=== PATIENT | female | born 1990 | race Two or more races ===

== ENCOUNTER 2025-03-16 01:36 | Inpatient (IN) | payer MEDICAID, OTHER ==
[~2025-03-16] VITALS: Ht 165.1 cm; Wt 64.7 kg
--- NOTE | 2025-03-16 02:06 | ED.PDOC ---
History of Present Illness HPI Comments 34-year-old female presents with a chief complaint of chest pain, palpitations, nausea, vomiting, and tremors. Patient states that she is having quite a bit of N/V and is causing her to feel tremulous. Patient is visibly shaking during assessment. Patient mentions that she has a history of Crohns Disease, and is trying to get gallbladder removal surgery. Patient mentions that her channel marketing specialist, Dr. Morrison, has not cleared her for surgery due to her WBC count. Chief Complaint: Chest Pain Time Seen by MD: 01:58 Reviewed Notes: Medications, Allergies Allergies: Coded Allergies: NO KNOWN ALLERGIES (Unverified , 03/16/25) Information Source: Patient Mode of Arrival: Ambulatory Severity: Moderate Timing: Hours Duration: Since onset Prehospital treatment: None Past Medical History PAST MEDICAL HISTORY: Anxiety, Asthma, Gallstones, High Lipids Past Medical History (Other): Crohns Disease Surgical History: Denies all surgeries MANAGER REGIONAL History: Denies all MANAGER REGIONAL Hx Family History Family History: Reviewed,noncontributory to illness Social History Smoker: Non-Smoker Alcohol: Denies ETOH Use Drugs: Denies Drug Use Lives In: Home Constitutional: denies: chills, diaphoresis, fatigue, fever, malaise, sweats, weakness, others EENTM: denies: blurred vision, double vision, ear bleeding, ear discharge, ear drainage, ear pain, ear ringing, eye pain, eye redness, hearing loss, mouth pain, mouth swelling, nasal discharge, nose bleeding, nose congestion, nose pain, photophobia, tearing, throat pain, throat swelling, voice changes, others Respiratory: denies: cough, hemoptysis, orthopnea, SOB at rest, shortness of breath, SOB with excertion, stridor, wheezing, others Cardiovascular: reports: chest pain, palpitations; denies: dizzy spells, diaphoresis, Dyspnea on exertion, edema, irregular heart beat, left arm pain, lightheadedness, PND, syncope, others Gastrointestinal: reports: nausea, vomiting; denies: abdomen distended, abdominal pain, blood streaked bowels, constipated, diarrhea, dysphagia, difficulty swallowing, hematemesis, melena, poor appetite, poor fluid intake, rectal bleeding, rectal pain, others Genitourinary: denies: abnormal vagina bleeding, burning, dyspareunia, dysuria, flank pain, frequency, hematuria, incontinence, pain, , vagina discharge, urgency, others Neurological: reports: tremors; denies: dizziness, fainting, headache, left sided numbness, left sided weakness, numbness, paresthesia, pre-existing deficit, right sided numbness, right sided weakness, seizure, speech problems, tingling, weakness, others Musculoskeletal: denies: back pain, gout, joint pain, joint swelling, muscle pain, muscle stiffness, neck pain, others Integumetry: denies: bruises, change in color, change in hair/nails, dryness, laceration, lesions, lumps, rash, wounds, others Allergic/Immunocompromised: denies: Difficulty Healing, Frequent Infections, Hives, Itching, others Hematologic/Lymphatic: denies: anemia, blood clots, easy bleeding, easy bruising, swollen glands, others Endocrine: denies: excessive hunger, excessive sweating, excessive thirst, excessive urination, flushing, intolerance to cold, intolerance to heat, unexplained weight gain, unexplained weight loss, others Psychiatric: denies: anxiety, bipolar disorder, depression, hopeless, panic disorder, schizophrenia, sleepless, suicidal, others All Other Systems: Reviewed and Negative Physical Exam General Appearance: Mild Distress, Normal, Other (TREMULOUS) HEENT: Normal ENT Inspection, Pharynx Normal, TMs Normal Neck: Full Range of Motion, Non-Tender, Normal, Normal Inspection Respiratory: Chest Non-Tender, Lungs Clear, No Accessory Muscle Use, No Respiratory Distress, Normal Breath Sounds Cardiovascular: No Edema, No JVD, No Murmur, No Gallop, Normal Peripheral Pulses, Regular Rate/Rhythm Breast Exam: Deferred Gastrointestinal: No Organomegaly, Non Tender, No Pulsatile Mass, Normal Bowel Sounds, Soft Genitalia: Deferred Pelvic: Deferred Rectal: Deferred Extremities: No calf tenderness, Normal capillary refill, Normal inspection, Normal range of motion, Non-tender, No pedal edema Musculoskeletal : Apperance: Normal Neurologic: Alert, research assistant professor II-XII nml as Tested, No Motor Deficits, Normal Affect, Normal Mood, No Sensory Deficits Cerebellar Function: Normal Reflexes: Normal Skin: Dry, Normal Color, Warm Lymphatic: No Adenopathy Was a procedure done? Was a procedure done?: No Differential Dx Considerations may include: ACS, viral gastroenteritis, Crohn's flare, hepatitis, dehydration, gallbladder issue, colitis X-Ray, Labs, Meds, VS Vital Signs Date Time Temp Pulse Resp B/P (MAP) Pulse Ox O2 Delivery O2 Flow Rate FiO2 03/16/25 03:16 98.5 97 16 152/102 (119) 98 98.5 03/16/25 03:16 97 16 152/102 03/16/25 03:02 80 03/16/25 02:38 99.7 116 19 122/92 (102) 96 99.7 03/16/25 02:38 116 19 96 Room Air 03/16/25 02:15 105 16 112/89 03/16/25 01:48 97 03/16/25 01:40 99.2 107 18 115/67 (83) 96 99.2 Lab Test 03/16/25 04:07 03/16/25 02:40 03/16/25 02:20 03/16/25 01:49 Range/Units Urine Color Colorless Yellow Urine Clarity Clear Clear Urine pH 7.0 5.0-9.0 Urine Specific [place] 1.037 H 1.001-1.035 Urine Protein Negative Negative Urine Ketones 2+ H Negative Urine Blood Negative Negative /uL Urine Nitrite Negative Negative Urine Bilirubin Negative Negative Urine Urobilinogen Normal Negative mg/dL Urine Leukocyte Esterase Negative Negative /uL Urine RBC <1 0 - 4 /hpf Urine Microscopic WBC < 1 0-5 /HPF Urine Squamous Epithelial Cells Few <5 /hpf Urine Bacteria None seen None Seen /hpf Urine Glucose Normal Normal mg/dL Troponin I High Sensitivity < 3 L < 3 L </=34 ng/L Lactic Acid Level 4.4 *H 0.4-2.0 mmol/L White Blood Count 4.2 L 4.4-10.8 10^3/uL Red Blood Count 3.62 L 4.0-5.20 10^6/uL Hemoglobin 11.6 L 12.2-16.2 g/dL Hematocrit 35.0 L 36.0-46.0 % Mean Corpuscular Volume 96.8 80.0-100.0 fL Mean Corpuscular Hemoglobin 32.1 H 28.0-32.0 pg Mean Corpuscular Hemoglobin Concent 33.2 32.0-36.0 g/dL Red Cell Distribution Width 17.1 H 11.8-14.3 % Platelet Count 67 L 140-450 10^3/uL Mean Platelet Volume 7.5 6.9-10.8 fL Neutrophils (%) (Auto) 63.3 37.0-80.0 % Lymphocytes (%) (Auto) 23.3 10.0-50.0 % Monocytes (%) (Auto) 11.6 0.0-12.0 % Eosinophils (%) (Auto) 0.6 0.0-7.0 % Basophils (%) (Auto) 1.2 0.0-2.0 % Neutrophils # (Auto) 2.7 1.6-8.6 10 ^3/uL Lymphocytes # (Auto) 1.0 0.4-5.4 10 ^3/uL Monocytes # (Auto) 0.5 0-1.3 10 ^3/uL Eosinophils # (Auto) 0 0-0.8 10 ^3/uL Basophils # (Auto) 0.1 0-0.2 10 ^3/uL Nucleated Red Blood Cells 0.1 % Sodium Level 136 136-145 mmol/L Potassium Level 3.5 3.5-5.1 mmol/L Chloride Level 97 L 98-107 mmol/L Carbon Dioxide Level 14 L 20-31 mmol/L Anion Gap 25 H 5-15 Blood Urea Nitrogen 8 L 9-23 mg/dL Creatinine 0.64 0.550-1.02 mg/dL Glomerular Filtration Rate Calc 118 >90 mL/min BUN/Creatinine Ratio 12.5 10.0-20.0 Serum Glucose 128 H 74-106 mg/dL Calcium Level 9.9 8.7-10.4 mg/dL Total Bilirubin 1.7 H 0.2-1.0 mg/dL Aspartate Amino Transferase (AST) 350 H 13-40 U/L Alanine Aminotransferase (ALT) 151 H 7-40 U/L Alkaline Phosphatase 98 46-116 U/L Total Protein 8.1 5.7-8.2 g/dL Albumin 4.5 3.2-4.8 g/dL Lipase 88 H 12-53 U/L Current Medications Medications (Trade) Dose Ordered Sig/Cindy Route Start Time Stop Time Status Last Admin Sodium Chloride 1,000 ml @ 1,000 mls/hr Q1H ONCE IV 03/16/25 02:15 03/16/25 03:14 DC 03/16/25 02:36 Ondansetron HCl (Zofran) 4 mg ONCE ONCE IV 03/16/25 02:15 03/16/25 02:16 DC 03/16/25 02:52 Pantoprazole Sodium (Protonix) 40 mg ONCE ONCE IV 03/16/25 02:15 03/16/25 02:16 DC 03/16/25 02:15 Morphine Sulfate 4 mg ONCE ONCE IV 03/16/25 02:15 03/16/25 02:16 DC 03/16/25 02:15 Sodium Chloride 1,000 ml @ 1,000 mls/hr Q1H ONCE IV 03/16/25 03:15 03/16/25 04:14 DC 03/16/25 03:50 Time of 1ST Reevaluation: 02:28 Reevaluation 1ST: Unchanged Patient Education/Counseling: Diagnosis, Treatment Family Education/Counseling: No Family Present Departure 1 Departure Time of Disposition: 04:23 (Patient presented with abdominal pain that was concerning for possible appendicits, gastritis, cholecystitis, colitis, gastroenteritis, sbo, or orther possible surgical emergency. Data: 1. I ordered and reviewed the result of at least 3 labs including a CBC, BMP, and Urinalysis. 2. I independently interpreted the following tests: CT Abdoment and Pelvis is concerning for enlarged liver .Risk:This patient has a high risk of morbidity due to further diagnostic testing or treatment and may suffer from an acute abdominal process disorder. Workup reveals concern for hepatitis and patient should be admitted for further workup. and possible expert consultation. ) Impression: Primary Impression: Acute chest pain Additional Impressions: Viral syndrome Hepatitis Disposition: ADMITTED INPATIENT Admit to: Med Surg Condition: Serious Critical Care Note Critical Care Time?: No Stability Stability form required: No I personally scribed for KIRSETN KING MD ([email or web address]) on 03/16/25 at 02:06. Electronically submitted by William Lau [email or web address]). KIRSTEN KING MD Mar 16, 2025 02:06
[2025-03-16 02:09] LABS: Basophils # (auto) 0.1 10 ^3/uL (0-0.2); Basophils % (auto) 1.2 % (0.0-2.0); Eosinophils # (auto) 0 10 ^3/uL (0-0.8); Eosinophils % (auto) 0.6 % (0.0-7.0); Hemoglobin 11.6 g/dL (12.2-16.2); Lymphocytes % (auto) 23.3 % (10.0-50.0); Mean Corpuscular Hemoglobin 32.1 pg (28.0-32.0); Mean Corpuscular Hgb Conc. 33.2 g/dL (32.0-36.0); Mean Corpuscular Volume 96.8 fL (80.0-100.0); Monocytes # (auto) 0.5 10 ^3/uL (0-1.3); Monocytes % (auto) 11.6 % (0.0-12.0); Neutrophils # (auto) 2.7 10 ^3/uL (1.6-8.6); Neutrophils % (auto) 63.3 % (37.0-80.0); Nucleated Red Blood Cells % 0.1 %; Platelet Count (auto) 67 10^3/uL (140-450); Red Blood Cells 3.62 10^6/uL (4.0-5.20); Red Cell Distribution Width 17.1 % (11.8-14.3); White Blood Cell 4.2 10^3/uL (4.4-10.8)
[2025-03-16] MEDS: MORPHINE SULFATE 4 MG/ML SYR/VIAL IV ONE (02:15)
[2025-03-16] MEDS: PANTOPRAZOLE 40 MG/10 ML VIAL INJ IV ONE (02:15)
[2025-03-16 02:27] LABS: Alkaline Phosphatase 98 U/L (46-116); Anion Gap 25 (5-15); BUN/Creatinine Ratio 12.5 (10.0-20.0); Calcium 9.9 mg/dL (8.7-10.4); Potassium 3.5 mmol/L (3.5-5.1); Sodium 136 mmol/L (136-145); Total Protein 8.1 g/dL (5.7-8.2)
[2025-03-16 02:28] LABS: Albumin 4.5 g/dL (3.2-4.8)
[2025-03-16 02:34] LABS: Alanine Aminotransferase 151 U/L (7-40); Aspartate Aminotransferase 350 U/L (13-40); Bilirubin, Total 1.7 mg/dL (0.2-1.0); Blood Urea Nitrogen 8 mg/dL (9-23); Carbon Dioxide 14 mmol/L (20-31); Chloride 97 mmol/L (98-107); Glucose 128 mg/dL (74-106); Lipase 88 U/L (12-53)
[2025-03-16] MEDS: SODIUM CHLORIDE 0.9% 1,000 ML IV ONE ×3 (02:36→04:37)
[2025-03-16] MEDS: ONDANSETRON HCL 4 MG/2 ML VIAL IV ONE (02:52)
[2025-03-16 02:57] LABS: Lactic Acid w/Reflex 4.4 mmol/L (0.4-2.0)
[2025-03-16 03:16] VITALS: PULSE 97; RESP 16; O2SAT 96
--- NOTE | 2025-03-16 03:49 | DVH ---
Exam: CT CT AB PEL WITH IV CON ONLY History: abdominal pain COMPARISON: None Technique: Multidetector spiral CT of the abdomen and pelvis was performed from lung bases to pubic s ymphysis. Intravenous contrast was administered during this examination. Portal venous imaging was o btained. Axial, coronal and sagittal multiplanar reformats were performed by the technologist on a [employer] workstation. Radiation Dose : 1. Abdomen/Pelvis: CTDIvol 5.82 mGy, DLP 305.98 mGy*cm. CONTRAST: Type of contrast: Omnipaque 300 Contrast injected: 100 ml Contrast ingested: None Findings: Lung Bases: No acute or significant lung base finding. Normal heart size. No pleural or pericardial effusion. Liver: The liver is enlarged, measuring 20.3 cm in craniocaudal dimension. There is diffuse hepatic s teatosis. No focal lesions. Normal hepatic vascular enhancement. Gallbladder and Biliary Tree: Unremarkable Spleen: Unremarkable Pancreas: The pancreas is normal in appearance without focal lesions or abnormal enhancement. Adrenal Glands: Unremarkable Kidneys: No hydronephrosis. Bladder: Unremarkable Bowel: The stomach is grossly normal in appearance. Small bowel and colon are normal in caliber and d istribution. The appendix is normal. Ascites: Absent Lymphadenopathy: No mesenteric, retroperitoneal or periportal lymphadenopathy. Abdominal Wall and Mesentery: Unremarkable. Vasculature: The visualized abdominal aorta is normal in size and caliber. Abdominal and pelvic vess els demonstrate normal enhancement. Pelvic Organs: Unremarkable Musculoskeletal: No aggressive focal bony lesions, acute fractures or dislocation. IMPRESSION: 1. No acute abdominal or pelvic finding. 2. Hepatomegaly and hepatic steatosis. Radiation optimization: All CT scans at this facility use at least one of these dose optimization teresa hniques: automated exposure control mA and/or kV adjustment per patient size (includes targeted exam s where dose is matched to clinical indication) or iterative reconstruction.
[2025-03-16] MEDS: IOHEXOL 300 MG/ML 100ML BOTTLE IJ ONE (03:54)
--- NOTE | 2025-03-16 03:55 | ECG ---
[facility] Test Date: 2025-03-16 Test Time: 03:02:46 Pat Name: BARTOLOME MURRAY Department: ER Room: 0280T Gender: F Manager Animal: SAMANTHA : 1990 Requested By: KIRSTEN KING Order Number: [id number] Reading MD: Alexander Gallagher Measurements Intervals [place] Rate: 80 P: 82 SD: 145 QRS: 73 QRSD: 100 T: 56 QT: 413 QTc: 477 Interpretive Statements Sinus rhythm Borderline prolonged QT interval Electronically Signed On 03-18-2025 13:01:02 PDT by Alexander Gallagher Please click the below link to view image of tracing.
[2025-03-16 04:14] LABS: Urine Bacteria None Seen /hpf (None Seen)
[2025-03-16 04:19] LABS: Urine Blood Negative /uL (Negative); Urine Clarity Clear (Clear); Urine Color Colorless (Yellow); Urine Protein, UAD Negative (Negative); Urine Specific Gravity 1.037 (1.001-1.035); Urine Squamous Epithelial Cell FEW /hpf (<5); Urine Urobilinogen Normal (Negative); Urine WBC < 1 /HPF (0-5)
[2025-03-16] MEDS: ceFAZolin 2 GM/D5W50ml 50 ML IV ONE (04:36)
[2025-03-16] MEDS: metroNIDAZOLE 500MG/100ML 100 ML IV ONE (05:33)
[2025-03-16 05:56] LABS: Base Excess -3.7 mmol/L (-2.0-3.0)
--- NOTE | 2025-03-16 06:29 | DVH ---
EXAM: XR Chest, 1 View CLINICAL INDICATION: cp TECHNIQUE: Frontal view of the chest. COMPARISON: None FINDINGS: LUNGS AND PLEURAL SPACES: Unremarkable. No consolidation. No pneumothorax. HEART: Unremarkable. No cardiomegaly. MEDIASTINUM: Unremarkable. Normal mediastinal contour. BONES/JOINTS: Unremarkable. No acute fracture. OTHER FINDINGS: . None. IMPRESSION: No acute cardiopulmonary process.
[2025-03-16] MEDS ORDERED: ONDANSETRON HCL 4 MG/2 ML VIAL IV PRN (06:45)
[2025-03-16] MEDS ORDERED: NITROGLYCERIN 0.4 MG SL TAB SL PRN (06:45)
[2025-03-16] MEDS ORDERED: MORPHINE SULFATE INJ 2 MG/ml SYRG IV PRN ×2 (06:45→07:00)
--- NOTE | 2025-03-16 06:48 | ECG ---
[facility] Test Date: 2025-03-16 Test Time: 04:50:14 Pat Name: BARTOLOME MURRAY Department: ED Room: 0280T Gender: F Security Sme: SAMANTHA : 1990 Requested By: KIRSTEN KING Order Number: [id number] Reading MD: Alexander Gallagher Measurements Intervals [place] Rate: 86 P: 52 ND: 159 QRS: 25 QRSD: 89 T: 12 QT: 381 QTc: 456 Interpretive Statements Sinus rhythm Low voltage, precordial leads Borderline T abnormalities, anterior leads Electronically Signed On 03-18-2025 13:05:27 PDT by Alexander Gallagher Please click the below link to view image of tracing.
--- NOTE | 2025-03-16 06:51 | ECG ---
[facility] Test Date: 2025-03-16 Test Time: 01:48:18 Pat Name: BARTOLOME MURRAY Department: ED Room: 0280T Gender: F Slasher Operator: VIRGILIO : 1990 Requested By: KIRSTEN KING Order Number: [id number] Reading MD: Alexander Gallagher Measurements Intervals [place] Rate: 97 P: 66 RI: 136 QRS: 58 QRSD: 100 T: 15 QT: 367 QTc: 466 Interpretive Statements Sinus rhythm Low voltage, precordial leads Electronically Signed On 03-18-2025 13:00:43 PDT by Alexander Gallagher Please click the below link to view image of tracing.
[2025-03-16 07:08] LABS: Triglycerides 121 mg/dL (< 150)
[2025-03-16 07:11] LABS: Blood Alcohol < 3.0 mg/dL (<10); Cholesterol 278 mg/dL (< 200); HDL Cholesterol 93 mg/dL (40-59); LDL Cholesterol 162 mg/dL (< 100)
[2025-03-16 07:14] LABS: Opiate Scree,Urine Neg (NEGATIVE)
[2025-03-16 07:19] LABS: Amphetamine Screen, Urine Neg (NEGATIVE); Barbiturate Scree,Urine Neg (NEGATIVE); Benzodiazephine Screen, Urine Neg (NEGATIVE); Cannabinoid Screen, Urine Neg (NEGATIVE); Cocaine Screen, Urine Neg (NEGATIVE); Phencyclidine Screen, Urine Neg (NEGATIVE)
--- NOTE | 2025-03-16 07:19 | DVHHP2 ---
Admitting Diagnosis: Chest pain rule out ACS, Transaminitis, Thrombocytopenia History of Present Illness History Source: Patient Exam Limitations: No limitations HPI Mrs. Jade Sosa is a 34-year-old female with a history of Crohn's disease, anxiety disorder, asthma, hyperlipidemia, gallstones who presents with a chief complaint of chest pain, palpitations, nausea, vomiting, and tremors. Patient states that she is having quite a bit of N/V with blood in her sputum once on Sunday, denies any further blood in her sputum, reports it is causing her to feel tremulous. Patient is visibly shaking during assessment. Patient mentions she is trying to get gallbladder removal surgery, is seen by general surgeon Dr. Fuentes Perez. Patient mentions that her breakfast and room attendant, Dr. Brigitte Morrison, has not cleared her for surgery due to her WBC count. Patient reports midsternal chest pressure non radiating. Patient denies dyspnea, headaches, dizziness, melena, hematochezia, diarrhea, constipation, hematemesis, fevers. Patient admitted for further evaluation. Past Medical History Cardiac: Hyperlipidemia Pulmonary: Asthma Psychiatric: Anxiety Others gallstones Smoker: Quit (2018) Alocohol: Occassional Drugs: None Lives with: With family Domestic Violence: Neg Review of Systems Constitutional: No symptom reported Ears, Nose, & Throat: No symptom reported Eyes: No symptom reported Pulmonary/Respiratory: Other (hemoptysis x1 ) Cardiovascular: Chest Pain, Palpitations Gastrointestinal: No symptom reported Genitourinary: No symptom reported Musculoskeletal: No symptom reported Skin: No symptom reported Psychiatric: Tremors, Anxiety Endocrine: No symptom reported Hemotologic/Lymphatic: Other (nose bleeds) H&P Exam Vital Signs Vital Signs Date Time Temp Pulse Resp B/P (MAP) Pulse Ox O2 Delivery O2 Flow Rate FiO2 03/16/25 06:00 100 19 133/89 (104) 97 03/16/25 03:16 98.5 98.5 03/16/25 03:16 Room Air* 0 21 General Appeara: Well developed, Well nourished, Normal Appearance Head Exam: Normal inspection Neck Exam: Normal inspection, Non-tender, Normal alignment Eye Exam: bilateral eye Normal inspection, bilateral eye PERRL, bilateral eye EOMI Ear Exam: bilateral ear Auricle normal Nasal Exam: Normal inspection Mouth: Normal Inspection Pulmonary/Respiratory: Normal inspection, Normal breath sounds, Chest non- tender, Lungs clear Cardiovascular/Chest: Normal inspection, Normal Rhythm, Tachycardia Peripheral Pulses: 2+ dorsalis pedis (R), 2+ dorsalis pedis (L), 2+ Radial (R), 2+ Radial (L) Abdominal Exam: Normal bowel sounds, Soft, No tenderness Rectal Exam: Deferred Pelvic Exam: Not done IMMIGRATION INSPECTOR Exam: Normal hearing, Normal speech, PERRL Motor/Sensory: Normal sensory function, Normal motor function Neuro/Mental St: Alert, Oriented Appearance: Appropriate appearance, Appropriate insight Eye contact/ Speech: Cooperative, Good eye contact, Increased rate of speech Thoughts/Psych: Normal thought pattern Skin Exam: Normal inspection, Warm/dry, Pallor Labs/Xrays Labs Test 03/16/25 06:41 03/16/25 05:52 03/16/25 04:07 03/16/25 01:49 Range/Units POC Glucose 110 H 70-106 mg/dl Blood Gas Specimen Type Arterial Blood Gas Sample Site Right radial Blood Gas Patient Temperature 37.0 Arterial Blood Date Drawn [id number] Arterial Blood pH 7.499 H 7.350-7.450 Arterial Blood Partial Pressure CO2 23.9 L 32.0-45.0 mmHg Arterial Blood Partial Pressure O2 62.0 L 83.0-108.0 mmHg Arterial Blood HCO3 18.2 L 21.0-28.0 mmol/L Arterial Blood Oxygen Saturation 89.6 L 94.0-98.0 % Arterial Blood Base Excess -3.7 L -2.0-3.0 mmol/L Arterial Blood Oxyhemoglobin 88.7 L 94.0-98.0 % Arterial Blood Carboxyhemoglobin 0.3 L 0.5-1.5 % Arterial Blood Methemoglobin 0.7 0.0-1.5 % Luke Test Yes Blood Gas Total Hemoglobin 10.70 L 12.0-16.0 g/dL Blood Gas Liter Flow 0.00 Blood Gas Modality Room air FiO2 % 21.0 Lactic Acid Level 1.5 0.4-2.0 mmol/L Troponin I High Sensitivity < 3 L </=34 ng/L Urine Color Colorless Yellow Urine Clarity Clear Clear Urine pH 7.0 5.0-9.0 Urine Specific [place] 1.037 H 1.001-1.035 Urine Protein Negative Negative Urine Ketones 2+ H Negative Urine Blood Negative Negative /uL Urine Nitrite Negative Negative Urine Bilirubin Negative Negative Urine Urobilinogen Normal Negative mg/dL Urine Leukocyte Esterase Negative Negative /uL Urine RBC <1 0 - 4 /hpf Urine Microscopic WBC < 1 0-5 /HPF Urine Squamous Epithelial Cells Few <5 /hpf Urine Bacteria None seen None Seen /hpf Urine Glucose Normal Normal mg/dL White Blood Count 4.2 L 4.4-10.8 10^3/uL Red Blood Count 3.62 L 4.0-5.20 10^6/uL Hemoglobin 11.6 L 12.2-16.2 g/dL Hematocrit 35.0 L 36.0-46.0 % Mean Corpuscular Volume 96.8 80.0-100.0 fL Mean Corpuscular Hemoglobin 32.1 H 28.0-32.0 pg Mean Corpuscular Hemoglobin Concent 33.2 32.0-36.0 g/dL Red Cell Distribution Width 17.1 H 11.8-14.3 % Platelet Count 67 L 140-450 10^3/uL Mean Platelet Volume 7.5 6.9-10.8 fL Neutrophils (%) (Auto) 63.3 37.0-80.0 % Lymphocytes (%) (Auto) 23.3 10.0-50.0 % Monocytes (%) (Auto) 11.6 0.0-12.0 % Eosinophils (%) (Auto) 0.6 0.0-7.0 % Basophils (%) (Auto) 1.2 0.0-2.0 % Neutrophils # (Auto) 2.7 1.6-8.6 10 ^3/uL Lymphocytes # (Auto) 1.0 0.4-5.4 10 ^3/uL Monocytes # (Auto) 0.5 0-1.3 10 ^3/uL Eosinophils # (Auto) 0 0-0.8 10 ^3/uL Basophils # (Auto) 0.1 0-0.2 10 ^3/uL Nucleated Red Blood Cells 0.1 % Sodium Level 136 136-145 mmol/L Potassium Level 3.5 3.5-5.1 mmol/L Chloride Level 97 L 98-107 mmol/L Carbon Dioxide Level 14 L 20-31 mmol/L Anion Gap 25 H 5-15 Blood Urea Nitrogen 8 L 9-23 mg/dL Creatinine 0.64 0.550-1.02 mg/dL Glomerular Filtration Rate Calc 118 >90 mL/min BUN/Creatinine Ratio 12.5 10.0-20.0 Serum Glucose 128 H 74-106 mg/dL Hemoglobin A1c 5.0 <5.7 % A1C Calcium Level 9.9 8.7-10.4 mg/dL Total Bilirubin 1.7 H 0.2-1.0 mg/dL Aspartate Amino Transferase (AST) 350 H 13-40 U/L Alanine Aminotransferase (ALT) 151 H 7-40 U/L Alkaline Phosphatase 98 46-116 U/L Total Protein 8.1 5.7-8.2 g/dL Albumin 4.5 3.2-4.8 g/dL Lipase 88 H 12-53 U/L Beta HCG, Quantitative 0.9 L 1.5-4.2 mIU/mL Test 03/16/25 01:46 Range/Units Beta-Hydroxybutyric Acid > 4.500 H < 0.4 mmol/L Assessment/Plan Problem List: (1) Acute chest pain (2) Palpitations (3) Transaminitis (4) Thrombocytopenia (5) Anxiety Plan This is a 34 yo female with known history of Crohn's disease, hyperlipidemia, asthma, gallstones, anxiety who presents to the hospital with chest pain, palpitations, tremors. CT abdomen and pelvis resulted 1. No acute abdominal or pelvic finding. 2. Hepatomegaly and hepatic steatosis. Patient was found to have 1. CP r/o ACS 2. Transaminitis 3. Thrombocytopenia 4. Elevated lipase 5. Anxiety 6. hx of Asthma 7. hx of Crohn's disease Plan Admit Telemetry unit Cardiology consultation, 2D echocardiogram, Statin, hold ASA d/t thrombocytopenia, serial troponin levels, Lipid panel, TSH level, CXR is pending Hematology consultation, Monitor CMP, CBC Gastroenterology consultation, Hepatitis panel, stool OB. IV fluids NS GI ppx Protonix Continue Lexapro home medication for anxiety Antiemetics as needed BC x2 pending Discussed all above with patient and patient mother at bedside in ED bed 11. Both patient and mother verbalized understanding of care plan. All questions were answered. Discussed assessment and care plan with supervising MD. Patient's chart is reviewed and discussed with the nurse practitioner. Patient is seen and evaluated by me this afternoon. I agree with the nurse practitioner's evaluation, documentation, assessment and care plan as outlined. Plan discussed with: Patient, Other (mother ) Code Visit Code Visit Total Time (mins): 45 SRIDEVI GONSALES Mar 16, 2025 07:19 JAGUAR JENKINS MD Mar 16, 2025 17:37
[2025-03-16] MEDS: SODIUM CHLORIDE 0.9% 1,000 ML IV SCH ×2 (07:44→13:18)
[2025-03-16 08:16] VITALS: PULSE 97; RESP 18; O2SAT 96
[2025-03-16] MEDS: PANTOPRAZOLE 40 MG/10 ML VIAL INJ IV SCH (10:18)
[2025-03-16] MEDS: CITALOPRAM HYDROBR 20 MG TAB PO SCH (10:20)
[2025-03-16 10:41] LABS: Hepatitis A Ab IgM Negative; Hepatitis B Core IgM Negative (Negative); Hepatitis B Surface Antigen Negative (Negative); Hepatitis C Antibody Negative (Negative)
--- NOTE | 2025-03-16 10:41 | DVHINCON2 ---
ALESIA LEAL [facility] 03/16/25 1041: Date Seen: Mar 16, 2025 Referring Physician DALE Braxton Reason for Consultation Chest pain History of Present Illness This is a 34-year-old female who presented to the emergency room with a chief complaint of chest pain. The patient presents with multiple complaints including substernal chest tightness, decreased appetite for two days, nausea, vomiting, hemoptysis, and tremors. She underwent multiple 12 lead electrocardiograms x2 revealing a normal sinus rhythm. Serial troponin levels are negative. Significant medical history includes Crohn's disease, dyslipidemia, asthma, anxiety, and cholelithiasis. Past Medical History Past medical history reviewed. No other significant than mentioned above. Past Surgical History Left oophorectomy Family History Family history reviewed. Significant for father with CAD including a quadruple vessel CABG. Social History Denies the use of illicit drugs or tobacco use. Admits to occasional alcohol use. Allergies: Coded Allergies: NO KNOWN ALLERGIES (Unverified , 03/16/25) Home Meds Home medications reviewed. Current Medications Current Medications Medications (Trade) Dose Ordered Sig/Cindy Route PRN Reason Start Time Stop Time Status Last Admin Nitroglycerin (Ntrostat Sublingual) 0.4 mg Q5MINP PRN SL FOR CHEST PAIN 03/16/25 06:45 Morphine Sulfate 2 mg Q30M PRN IV FOR CHEST PAIN 03/16/25 06:45 Citalopram Hydrobromide (CeleXA TABLET) 20 mg DAILY PO 03/16/25 10:00 03/16/25 10:20 Atorvastatin Calcium (Lipitor) 20 mg HS PO 03/16/25 22:00 Sodium Chloride 1,000 ml @ 100 mls/hr Q10H IV 03/16/25 06:45 03/16/25 07:44 Ondansetron HCl (Zofran) 4 mg Q6HPRN PRN IV NAUSEA / VOMITING 03/16/25 06:45 Pantoprazole Sodium (Protonix) 40 mg BID IV 03/16/25 10:00 03/16/25 10:18 Morphine Sulfate 2 mg Q6HPRN PRN IV PAIN SCALE 7 THRU 10 03/16/25 07:00 Review of Systems Constitutional: Tremors Ears, Nose, & Throat: No symptom reported Eyes: No symptom reported Neurological: No symptoms reported Pulmonary/Respiratory: Hemoptysis Cardiovascular: Chest pain Gastrointestinal: Nausea and vomiting, decreased appetite Genitourinary: No symptom reported Musculoskeletal: No symptom reported Skin: No symptom reported Psychiatric: No symptom reported Endocrine: No symptom reported Hemotologic/Lymphatic: No symptom reported Vital Signs Vital Signs Date Time Temp Pulse Resp B/P (MAP) Pulse Ox O2 Delivery O2 Flow Rate FiO2 03/16/25 08:16 97 18 96 Room Air* 0 21 03/16/25 08:00 98.8 121/81 (94) 98.8 Physical Exam General Appearance: Cooperative. Well developed. Well nourished. Appears very anxious. Tremors present Head Exam: Normal inspection Neck Exam: Normal inspection. Non-tender. Normal alignment Pulmonary/Respiratory: Chest non-tender. Clear bilateral breath sounds Cardiovascular/Chest: Regular rate and rhythm. S1, S2. NSR. No murmurs. No JVD. Peripheral Pulses: 2+ Radial (R). 2+ Radial (L). 2+ Pedal (R). 2+ Pedal (L) Abdominal Exam: Normal bowel sounds. Soft. Ankle Exam: Negative ankle edema Lower extremities: Negative lower extremity edema Neuro/Mental Status: A&O x4. Coherent Thoughts/Psych: Normal thought pattern. Very anxious Appearance: In no acute distress Skin Exam: Normal inspection. Normal color. Warm. Dry Labs/Diagnostic Data Labs Test 03/16/25 06:41 03/16/25 05:52 03/16/25 04:07 03/16/25 01:49 Range/Units POC Glucose 110 H 70-106 mg/dl Blood Gas Specimen Type Arterial Blood Gas Sample Site Right radial Blood Gas Patient Temperature 37.0 Arterial Blood Date Drawn [id number] Arterial Blood pH 7.499 H 7.350-7.450 Arterial Blood Partial Pressure CO2 23.9 L 32.0-45.0 mmHg Arterial Blood Partial Pressure O2 62.0 L 83.0-108.0 mmHg Arterial Blood HCO3 18.2 L 21.0-28.0 mmol/L Arterial Blood Oxygen Saturation 89.6 L 94.0-98.0 % Arterial Blood Base Excess -3.7 L -2.0-3.0 mmol/L Arterial Blood Oxyhemoglobin 88.7 L 94.0-98.0 % Arterial Blood Carboxyhemoglobin 0.3 L 0.5-1.5 % Arterial Blood Methemoglobin 0.7 0.0-1.5 % Luke Test Yes Blood Gas Total Hemoglobin 10.70 L 12.0-16.0 g/dL Blood Gas Liter Flow 0.00 Blood Gas Modality Room air FiO2 % 21.0 Lactic Acid Level 1.5 0.4-2.0 mmol/L Troponin I High Sensitivity < 3 L </=34 ng/L Triglycerides Level 121 < 150 mg/dL Cholesterol Level 278 H < 200 mg/dL LDL Cholesterol 162 H < 100 mg/dL HDL Cholesterol 93 H 40-59 mg/dL Thyroid Stimulating Hormone (TSH) 5.31 H 0.55-4.78 uIU/mL Plasma/Serum Blood Alcohol < 3.0 <10 mg/dL Urine Color Colorless Yellow Urine Clarity Clear Clear Urine pH 7.0 5.0-9.0 Urine Specific [place] 1.037 H 1.001-1.035 Urine Protein Negative Negative Urine Ketones 2+ H Negative Urine Blood Negative Negative /uL Urine Nitrite Negative Negative Urine Bilirubin Negative Negative Urine Urobilinogen Normal Negative mg/dL Urine Leukocyte Esterase Negative Negative /uL Urine RBC <1 0 - 4 /hpf Urine Microscopic WBC < 1 0-5 /HPF Urine Squamous Epithelial Cells Few <5 /hpf Urine Bacteria None seen None Seen /hpf Urine Glucose Normal Normal mg/dL Urine Opiates Screen Neg NEGATIVE Urine Fentanyl Screen Neg NEGATIVE Urine Barbiturates Screen Neg NEGATIVE Urine Phencyclidine Screen Neg NEGATIVE Urine Amphetamines Screen Neg NEGATIVE Urine Benzodiazepines Screen Neg NEGATIVE Urine Cocaine Screen Neg NEGATIVE Urine Cannabinoids Screen Neg NEGATIVE White Blood Count 4.2 L 4.4-10.8 10^3/uL Red Blood Count 3.62 L 4.0-5.20 10^6/uL Hemoglobin 11.6 L 12.2-16.2 g/dL Hematocrit 35.0 L 36.0-46.0 % Mean Corpuscular Volume 96.8 80.0-100.0 fL Mean Corpuscular Hemoglobin 32.1 H 28.0-32.0 pg Mean Corpuscular Hemoglobin Concent 33.2 32.0-36.0 g/dL Red Cell Distribution Width 17.1 H 11.8-14.3 % Platelet Count 67 L 140-450 10^3/uL Mean Platelet Volume 7.5 6.9-10.8 fL Neutrophils (%) (Auto) 63.3 37.0-80.0 % Lymphocytes (%) (Auto) 23.3 10.0-50.0 % Monocytes (%) (Auto) 11.6 0.0-12.0 % Eosinophils (%) (Auto) 0.6 0.0-7.0 % Basophils (%) (Auto) 1.2 0.0-2.0 % Neutrophils # (Auto) 2.7 1.6-8.6 10 ^3/uL Lymphocytes # (Auto) 1.0 0.4-5.4 10 ^3/uL Monocytes # (Auto) 0.5 0-1.3 10 ^3/uL Eosinophils # (Auto) 0 0-0.8 10 ^3/uL Basophils # (Auto) 0.1 0-0.2 10 ^3/uL Nucleated Red Blood Cells 0.1 % Sodium Level 136 136-145 mmol/L Potassium Level 3.5 3.5-5.1 mmol/L Chloride Level 97 L 98-107 mmol/L Carbon Dioxide Level 14 L 20-31 mmol/L Anion Gap 25 H 5-15 Blood Urea Nitrogen 8 L 9-23 mg/dL Creatinine 0.64 0.550-1.02 mg/dL Glomerular Filtration Rate Calc 118 >90 mL/min BUN/Creatinine Ratio 12.5 10.0-20.0 Serum Glucose 128 H 74-106 mg/dL Hemoglobin A1c 5.0 <5.7 % A1C Calcium Level 9.9 8.7-10.4 mg/dL Total Bilirubin 1.7 H 0.2-1.0 mg/dL Aspartate Amino Transferase (AST) 350 H 13-40 U/L Alanine Aminotransferase (ALT) 151 H 7-40 U/L Alkaline Phosphatase 98 46-116 U/L Total Protein 8.1 5.7-8.2 g/dL Albumin 4.5 3.2-4.8 g/dL Lipase 88 H 12-53 U/L Beta HCG, Quantitative 0.9 L 1.5-4.2 mIU/mL Test 03/16/25 01:46 Range/Units Beta-Hydroxybutyric Acid > 4.500 H < 0.4 mmol/L Assessment Chest pain with associated acute hypoxic respiratory failure Rule out structural heart disease Rule out pulmonary emboli Anemia/thrombocytopenia Elevated LFTs Dyslipidemia ?Thyroid disease Plan/Recommendation (Dr. Castaneda) We will continue further cardiac evaluation with a transthoracic echocardiogram to rule out structural heart disease and a CT angio with contrast to rule out PE. Aware of contrast administered with previous imaging study. The patient presents with a Heart Score of 1 placing her at a low risk for major coronary cardiac events. In the meantime, continue lipid-lowering agent. Anticoagulation therapy held given thrombocytopenia. Further orders per clinical course. Thank you for allowing us to participate in this patient's care. Please call if you have any questions or concerns. This medical document was created using an electronic medical record system with voice recognition software and computerized dictation system. Although this document has been carefully reviewed, there might still be some phonetic and typographical errors. Occasional wrong-word or ``sound-alike substitutions may have occurred due to the inherent limitations of voice recognition software. These areas are purely typographical due to imperfections of the software programs and do not reflect any compromise in the patient's medical care. Please read the chart carefully and recognize, using context, where these substitutions have occurred. Plan discussed with: Patient, Other NYHA Physical activity limitations: NA Date of Service: Mar 16, 2025 Billing Provider: ALESIA LEAL Cardiology Common Codes: [id number] INP/OBS CARE (High) GRACIELA CASTANEDA MD 03/17/25 1211: Allergies: Coded Allergies: NO KNOWN ALLERGIES (Unverified , 03/16/25) Plan/Recommendation pt needs GI workup for LFTs and very low bicarb levels, cardiac issues are not significant at this time and echo is WNL, please consult specialist regarding her more urgent matters ALESIA LEAL Mar 16, 2025 10:41 GRACIELA CASTANEDA MD Mar 17, 2025 12:11
[2025-03-16] MEDS: LORazepam 2MG/ML-1ML VIAL IV ONE (11:33)
--- NOTE | 2025-03-16 11:36 | DVHSR ---
APPROVED REPORT EXAM: Two-dimensional and M-mode echocardiogram with Doppler and color Doppler. Blood Pressure: 133/89 mmHg INDICATION Chest Pain Tachycardia RISK FACTORS Height: 65, Weight: 143 DIMENSIONS LVDd4.2 (3.8-5.7cm)LA (2D)3.5 (1.9-4.0cm)Aortic Root3.0 (2.0-3.7cm) LVDs2.7 (2.5-4.0cm)LA (MM) (1.9-4.0cm)Aortic Cusp Exc1.8 (1.5-2.0cm) EF (%) 65.0 (55-70%)Rt. Atrium3.2 (1.9-4.0cm)Asc. Aorta cm IVSd0.7 (0.7-1.1cm)RV (D) (1.8-2.4cm) PWd0.8 (0.7-1.1cm) Mitral Valve MitralMitral Stenosis E wave0.78m/sMV Mean GR.mmHg A wave0.95m/sMV Peak GR.mmHg E/A ratio0.82D MVAcm2 DECEL [id number] 1/2 [id number] IVRTmsDop MVA3.78cm2 Aortic Valve Aortic ValveAortic Stenosis V11.26m/Sheela Mean GR.3mmHg V21.21m/Sheela Peak GR.6mmHg LVOT Diameter1.9 (1.8-2.4cm)Doppler AVA2.95cm2 Pulmonic Valve V21.00m/s Conclusion lvef 70% by visual estimate normal rv function normal atria no severe valve abnormalities noted
[2025-03-16] MEDS: LORazepam 2MG/ML-1ML VIAL ONE (11:59)
[2025-03-16 12:54] LABS: Lactic Acid w/Reflex 10.6 mmol/L (0.4-2.0)
[2025-03-16] MEDS ORDERED: LORazepam 2MG/ML-1ML VIAL IV PRN (13:15)
--- NOTE | 2025-03-16 13:17 | DVHCONRES ---
Date Seen: Mar 16, 2025 Resident Creating Document: MANDYGEMA SANCHEZ RESIDENT Reason for Consultation Transaminitis History of Present Illness BARTOLOME MURRAY is a 34-year-old female with a history of Crohn's disease, anxiety disorder, asthma, hyperlipidemia, gallstones who presents with a chief complaint of vomiting. Patient reported she has been having vomiting for last 2 months which is occasionally but recently it has been more consistent and associated with a blade for 1 week associated with mild chest discomfort nausea and tremors which prompted her to visit ED. Patient states that she is having quite a bit of N/V with blood in her sputum once on Sunday, denies any further blood in her sputum, reports it is causing her to feel tremulous. Patient is visibly shaking during assessment. Patient mentions she is trying to get gallbladder removal surgery, is seen by general surgeon Dr. Fuentes Perez. Patient denies dyspnea, headaches, dizziness, melena, hematochezia, diarrhea, constipation, hematemesis, fevers. GI was consulted for elevated liver enzymes. Patient denies history of liver disease. Patient reports occasional alcohol abuse. PMH: Crohn's disease since 2018 and on medications, anxiety disorder, asthma, hyperlipidemia, gallstones PSH: Denies Family history: History of unknown cancer in mom's cousin Social history: Lives with the family. Ex-smoker, occasional alcohol abuse, but no other drug abuse Allergies: No known allergies Allergies: Coded Allergies: NO KNOWN ALLERGIES (Unverified , 03/16/25) Current Medications Current Medications Medications (Trade) Dose Ordered Sig/Cindy Route PRN Reason Start Time Stop Time Status Last Admin Nitroglycerin (Ntrostat Sublingual) 0.4 mg Q5MINP PRN SL FOR CHEST PAIN 03/16/25 06:45 Morphine Sulfate 2 mg Q30M PRN IV FOR CHEST PAIN 03/16/25 06:45 Citalopram Hydrobromide (CeleXA TABLET) 20 mg DAILY PO 03/16/25 10:00 03/16/25 10:20 Atorvastatin Calcium (Lipitor) 20 mg HS PO 03/16/25 22:00 Sodium Chloride 1,000 ml @ 100 mls/hr Q10H IV 03/16/25 06:45 03/16/25 13:02 DC 03/16/25 07:44 Ondansetron HCl (Zofran) 4 mg Q6HPRN PRN IV NAUSEA / VOMITING 03/16/25 06:45 Pantoprazole Sodium (Protonix) 40 mg BID IV 03/16/25 10:00 03/16/25 10:18 Morphine Sulfate 2 mg Q6HPRN PRN IV PAIN SCALE 7 THRU 10 03/16/25 07:00 Sodium Chloride 1,000 ml @ 125 mls/hr Q8H IV 03/16/25 13:00 Lorazepam (Ativan Inj) 1 mg Q5MINP PRN IV SEIZURES 03/16/25 13:15 Review of Systems Patient seen and examined at the bedside. Patient currently reported tremors, nausea, anxiety, palpitations, blood in vomiting Vital Signs Vital Signs Date Time Temp Pulse Resp B/P (MAP) Pulse Ox O2 Delivery O2 Flow Rate FiO2 03/16/25 12:00 125 20 147/103 (118) 96 03/16/25 08:16 Room Air* 0 21 03/16/25 08:00 98.8 98.8 Physical Exam Pt is lying on bed General Appearance: Alert, Oriented X3, Cooperative, Not in acute distress HEENT: Atraumatic, Mucous membranes moist/pink Respiratory: Clear to auscultation, Normal air movement, No added sounds Cardiovascular: Regular rate, Normal S1, Normal S2, No murmurs, sternal tenderness Abdominal: Active bowel sounds, Soft, no distention, epigastrium, RUQ abdominal tenderness Extremities: No edema, Normal pulses, No tenderness/swelling Skin: No Significant rash, except past surgical scars Neuro: Normal speech, sensorimotor deficits none Psych/Mental Status: anxious Nurse was there as sharperone during examination Labs/Diagnostic Data Labs Test 03/16/25 11:55 03/16/25 06:41 03/16/25 05:52 03/16/25 04:07 Range/Units Lactic Acid Level 10.6 *H 0.4-2.0 mmol/L POC Glucose 110 H 70-106 mg/dl Blood Gas Specimen Type Arterial Blood Gas Sample Site Right radial Blood Gas Patient Temperature 37.0 Arterial Blood Date Drawn [id number] Arterial Blood pH 7.499 H 7.350-7.450 Arterial Blood Partial Pressure CO2 23.9 L 32.0-45.0 mmHg Arterial Blood Partial Pressure O2 62.0 L 83.0-108.0 mmHg Arterial Blood HCO3 18.2 L 21.0-28.0 mmol/L Arterial Blood Oxygen Saturation 89.6 L 94.0-98.0 % Arterial Blood Base Excess -3.7 L -2.0-3.0 mmol/L Arterial Blood Oxyhemoglobin 88.7 L 94.0-98.0 % Arterial Blood Carboxyhemoglobin 0.3 L 0.5-1.5 % Arterial Blood Methemoglobin 0.7 0.0-1.5 % Luke Test Yes Blood Gas Total Hemoglobin 10.70 L 12.0-16.0 g/dL Blood Gas Liter Flow 0.00 Blood Gas Modality Room air FiO2 % 21.0 Troponin I High Sensitivity < 3 L </=34 ng/L Triglycerides Level 121 < 150 mg/dL Cholesterol Level 278 H < 200 mg/dL LDL Cholesterol 162 H < 100 mg/dL HDL Cholesterol 93 H 40-59 mg/dL Thyroid Stimulating Hormone (TSH) 5.31 H 0.55-4.78 uIU/mL Plasma/Serum Blood Alcohol < 3.0 <10 mg/dL Urine Color Colorless Yellow Urine Clarity Clear Clear Urine pH 7.0 5.0-9.0 Urine Specific [place] 1.037 H 1.001-1.035 Urine Protein Negative Negative Urine Ketones 2+ H Negative Urine Blood Negative Negative /uL Urine Nitrite Negative Negative Urine Bilirubin Negative Negative Urine Urobilinogen Normal Negative mg/dL Urine Leukocyte Esterase Negative Negative /uL Urine RBC <1 0 - 4 /hpf Urine Microscopic WBC < 1 0-5 /HPF Urine Squamous Epithelial Cells Few <5 /hpf Urine Bacteria None seen None Seen /hpf Urine Glucose Normal Normal mg/dL Urine Opiates Screen Neg NEGATIVE Urine Fentanyl Screen Neg NEGATIVE Urine Barbiturates Screen Neg NEGATIVE Urine Phencyclidine Screen Neg NEGATIVE Urine Amphetamines Screen Neg NEGATIVE Urine Benzodiazepines Screen Neg NEGATIVE Urine Cocaine Screen Neg NEGATIVE Urine Cannabinoids Screen Neg NEGATIVE Test 03/16/25 01:49 03/16/25 01:46 Range/Units White Blood Count 4.2 L 4.4-10.8 10^3/uL Red Blood Count 3.62 L 4.0-5.20 10^6/uL Hemoglobin 11.6 L 12.2-16.2 g/dL Hematocrit 35.0 L 36.0-46.0 % Mean Corpuscular Volume 96.8 80.0-100.0 fL Mean Corpuscular Hemoglobin 32.1 H 28.0-32.0 pg Mean Corpuscular Hemoglobin Concent 33.2 32.0-36.0 g/dL Red Cell Distribution Width 17.1 H 11.8-14.3 % Platelet Count 67 L 140-450 10^3/uL Mean Platelet Volume 7.5 6.9-10.8 fL Neutrophils (%) (Auto) 63.3 37.0-80.0 % Lymphocytes (%) (Auto) 23.3 10.0-50.0 % Monocytes (%) (Auto) 11.6 0.0-12.0 % Eosinophils (%) (Auto) 0.6 0.0-7.0 % Basophils (%) (Auto) 1.2 0.0-2.0 % Neutrophils # (Auto) 2.7 1.6-8.6 10 ^3/uL Lymphocytes # (Auto) 1.0 0.4-5.4 10 ^3/uL Monocytes # (Auto) 0.5 0-1.3 10 ^3/uL Eosinophils # (Auto) 0 0-0.8 10 ^3/uL Basophils # (Auto) 0.1 0-0.2 10 ^3/uL Nucleated Red Blood Cells 0.1 % Sodium Level 136 136-145 mmol/L Potassium Level 3.5 3.5-5.1 mmol/L Chloride Level 97 L 98-107 mmol/L Carbon Dioxide Level 14 L 20-31 mmol/L Anion Gap 25 H 5-15 Blood Urea Nitrogen 8 L 9-23 mg/dL Creatinine 0.64 0.550-1.02 mg/dL Glomerular Filtration Rate Calc 118 >90 mL/min BUN/Creatinine Ratio 12.5 10.0-20.0 Serum Glucose 128 H 74-106 mg/dL Hemoglobin A1c 5.0 <5.7 % A1C Calcium Level 9.9 8.7-10.4 mg/dL Total Bilirubin 1.7 H 0.2-1.0 mg/dL Aspartate Amino Transferase (AST) 350 H 13-40 U/L Alanine Aminotransferase (ALT) 151 H 7-40 U/L Alkaline Phosphatase 98 46-116 U/L Total Protein 8.1 5.7-8.2 g/dL Albumin 4.5 3.2-4.8 g/dL Lipase 88 H 12-53 U/L Beta HCG, Quantitative 0.9 L 1.5-4.2 mIU/mL Hepatitis A IgM Antibody Negative Hepatitis B Surface Antigen Negative Negative Hepatitis B Core IgM Antibody Negative Negative Hepatitis C Antibody Negative Negative Beta-Hydroxybutyric Acid > 4.500 H < 0.4 mmol/L Assessment # Intractable Nausea & Vomiting # questionable alcohol withdrawal # Upper GI bleed # Transaminitis # Hepatomegaly and hepatic steatosis # hx of Crohn's disease # Elevated lipase r/o pancreatitis # Pancytopenia # Dyslipidemia # ?Thyroid disease # Chest pain with associated acute hypoxic respiratory failure # Lactic acidosis Plan/Recommendation -Librium p.o. q.6 p.r.n. - ordered ammonia, JOSE M panel - Protonix 40 iv bid - Zofran prn - IV fluids NS - Hepatitis panel negative - CT abdominal pelvis with the contrast showed Hepatomegaly and hepatic steatosis. - Monitor lab - plan procedure: - please avoid NSAIDs, alcohol, spicy, highly acidic and caustic diets. - start full liquid diet -follow up on outpatient - Rest of the management as per primary team Thank you so much for the opportunity to consult on your patient. GI team will follow the patient Case an action plan discussed with Dr. Dominga Masters. Complex care planning needed total 49 minutes of detailed discussion. The patient and caregiver team agreed to the plan. Plan discussed with: Patient GEMA GALVAN RESIDENT Mar 16, 2025 13:17
[2025-03-16 14:18] LABS: Carbon Dioxide 21 mmol/L (20-31); Chloride 101 mmol/L (98-107); Potassium 3.5 mmol/L (3.5-5.1)
[2025-03-16 14:19] LABS: Anion Gap 14 (5-15); Calcium 9.1 mg/dL (8.7-10.4); Sodium 136 mmol/L (136-145)
[2025-03-16 14:24] LABS: Glucose 102 mg/dL (74-106)
[2025-03-16 14:26] LABS: INR 1.09 (0.9-1.15); Partial Thromboplastin Time 26.5 SEC (24.5-34.5); Prothrombin Time 11.5 sec (9.3-11.8)
[2025-03-16 14:28] LABS: BUN/Creatinine Ratio 8.5 (10.0-20.0); Blood Urea Nitrogen < 5 mg/dL (9-23)
--- NOTE | 2025-03-16 14:33 | DVH ---
INDICATION: RUQ pain TECHNIQUE: Multiple real-time sonographic images of the abdomen were obtained. COMPARISON: None FINDINGS: The liver is heterogenous in echogenicity. The liver measures 15cm. No intrahepatic biliar y ductal dilatation is noted. The gallbladder wall measures 0.12 cm and is unremarkable. No gallstones or sludge is seen. The comm on duct measures 0.4 cm and is unremarkable. No pericholecystic fluid is noted. The right kidney measures 10cm. No hydronephrosis. The pancreas is not well visualized due to obscuration from bowel gas. The visualized portions of the IVC and aorta are grossly unremarkable. IMPRESSION: Hepatic steatosis
[2025-03-16] MEDS ORDERED: chlordiazePOXIDE HCL 5 MG CAP PO PRN (16:15)
[2025-03-16 18:12] VITALS: BP 132/63; PULSE 100; RESP 18; TEMP 99.1; O2SAT 0; O2SAT 98
[2025-03-16 21:06] VITALS: BP 134/87; PULSE 104; RESP 20; TEMP 98.4; O2SAT 96
[2025-03-16] MEDS: SUCRALFATE 1 GM/10 ML ORAL SUSP PO SCH (21:24)
[2025-03-16] MEDS ORDERED: ATORVASTATIN 20 MG TAB PO SCH (22:00)
[2025-03-17] VITALS (8 sets, daily range): BP systolic 120–136; BP diastolic 91–98; PULSE 82–125; RESP 16–20; TEMP 98.3–99; O2SAT 97–99
[2025-03-17 07:01] LABS: Basophils # (auto) 0 10 ^3/uL (0-0.2); Basophils % (auto) 0.8 % (0.0-2.0); Eosinophils # (auto) 0.1 10 ^3/uL (0-0.8); Eosinophils % (auto) 3.8 % (0.0-7.0); Hematocrit 31.4 % (36.0-46.0); Hemoglobin 10.7 g/dL (12.2-16.2); Lymphocytes # (auto) 1.1 10 ^3/uL (0.4-5.4); Lymphocytes % (auto) 32.8 % (10.0-50.0); Mean Corpuscular Hemoglobin 32.6 pg (28.0-32.0); Mean Corpuscular Hgb Conc. 34.2 g/dL (32.0-36.0); Mean Corpuscular Volume 95.4 fL (80.0-100.0); Monocytes # (auto) 0.5 10 ^3/uL (0-1.3); Monocytes % (auto) 14.7 % (0.0-12.0); Neutrophils # (auto) 1.7 10 ^3/uL (1.6-8.6); Neutrophils % (auto) 47.9 % (37.0-80.0); Nucleated Red Blood Cells % 0.2 %; Platelet Count (auto) 59 10^3/uL (140-450); Red Blood Cells 3.29 10^6/uL (4.0-5.20); White Blood Cell 3.5 10^3/uL (4.4-10.8)
[2025-03-17 07:09] LABS: Albumin 4.1 g/dL (3.2-4.8); Alkaline Phosphatase 79 U/L (46-116); Anion Gap 15 (5-15); Calcium 9.6 mg/dL (8.7-10.4); Carbon Dioxide 22 mmol/L (20-31); Chloride 100 mmol/L (98-107); Glucose 76 mg/dL (74-106); Sodium 137 mmol/L (136-145); Total Protein 7.2 g/dL (5.7-8.2)
[2025-03-17 07:15] LABS: BUN/Creatinine Ratio 9.3 (10.0-20.0); Blood Urea Nitrogen < 5 mg/dL (9-23); Potassium 3.4 mmol/L (3.5-5.1)
[2025-03-17 07:16] LABS: Alanine Aminotransferase 89 U/L (7-40); Aspartate Aminotransferase 145 U/L (13-40); Bilirubin, Total 1.2 mg/dL (0.2-1.0); Lipase 100 U/L (12-53)
--- NOTE | 2025-03-17 09:18 | DVHPN2 ---
Consult Progress Note Date Seen: Mar 17, 2025 Subjective Patient reports: Feels better Review of Systems: CVS:Normal, RESPIRATORY:Normal, NEURO:Normal Other Systems: Denies any further cardiac symptoms Objective vital signs Vital Sign Date Time Temp Pulse Resp B/P (MAP) Pulse Ox O2 Delivery O2 Flow Rate FiO2 03/17/25 07:30 16 Room Air* 0 21 03/17/25 04:43 98.7 86 136/96 (109) 98 98.7 Total Intake and Output 03/16/25 03/16/25 03/17/25 15:00 23:00 07:00 Intake Total 625 ml 125 ml 240 ml Output Total 1700 ml Balance 625 ml 125 ml -1460 ml medications Current Medications Medications Dose Ordered Sig/Cindy Route Start Time Stop Time Status Last Admin Dose Admin Nitroglycerin 0.4 mg Q5MINP PRN SL 03/16/25 06:45 Morphine Sulfate 2 mg Q30M PRN IV 03/16/25 06:45 Citalopram Hydrobromide 20 mg DAILY PO 03/16/25 10:00 03/16/25 10:20 20 MG Ondansetron HCl 4 mg Q6HPRN PRN IV 03/16/25 06:45 Pantoprazole Sodium 40 mg BID IV 03/16/25 10:00 03/16/25 21:24 40 MG Morphine Sulfate 2 mg Q6HPRN PRN IV 03/16/25 07:00 Sodium Chloride 1,000 ml @ 125 mls/hr Q8H IV 03/16/25 13:00 03/16/25 20:32 125 MLS/HR Lorazepam 1 mg Q5MINP PRN IV 03/16/25 13:15 Sucralfate 1 gm TID@0600,1130,2200 PO 03/16/25 22:00 03/17/25 06:28 1 GM Chlordiazepoxide HCl 10 mg Q6HPRN PRN PO 03/16/25 16:15 Examination: LUNGS:Normal, CVS:Normal, NEURO:Normal laboratory and microbiology Laboratory Tests 03/17/25 05:30 Test 03/17/25 05:30 Range/Units Serum Glucose 76 74-106 mg/dL Problem List/Assessment/Plan Problem List/Assessment/Plan Chest pain likely non-cardiac in nature, resolved Anemia/thrombocytopenia Elevated LFTs Dyslipidemia ?Thyroid disease Plan/Recommendation (Dr. Edwards) A transthoracic echocardiogram revealed an LVEF of 70% with normal RV function. The patient presents with a Heart Score of 1 placing her at a low risk for major coronary cardiac events. Continue lipid-lowering agent, monitor LFTs closely. Replete electrolytes as necessary. Consider autoimmune disease as differential. There is no further cardiac work-up indicated at this time. Kindly call with any questions or concerns. Thank you for allowing us to participate in this patient's care. This medical document was created using an electronic medical record system with voice recognition software and computerized dictation system. Although this document has been carefully reviewed, there might still be some phonetic and typographical errors. Occasional wrong-word or ``sound-alike substitutions may have occurred due to the inherent limitations of voice recognition software. These areas are purely typographical due to imperfections of the software programs and do not reflect any compromise in the patient's medical care. Please read the chart carefully and recognize, using context, where these substitutions have occurred. Plan discussed with: Patient, Other Date of Service: Mar 17, 2025 Billing Provider: ALESIA LEAL Cardiology Common Codes: [id number] INP/OBS CARE(Mod) ALESIA LEAL [facility] Mar 17, 2025 09:18
[2025-03-17] MEDS: POTASSIUM CHL 20 Meq TABLET PO ONE (10:01)
--- NOTE | 2025-03-17 12:02 | DVHPN2 ---
Progress Note - Dictate Date Seen: Mar 17, 2025 Medical Necessity Reason Pt with a Central, PICC or Fol: No Subjective She was feeling better today. Tolerating diet without any abdominal discomfort. Ultrasound of the gallbladder does not show any acute pathology. Discussed with the general surgeon Dr. Perez recommended nurse surgical intervention given the CT of the abdomen and pelvis as well as ultrasound of the gallbladder is normal. Patient remains sinus tachycardic with activity heart rate in the 120s but at rest sinus rhythm in the 80s to 90s. Mother is at bedside. vital signs Vital Sign Date Time Temp Pulse Resp B/P (MAP) Pulse Ox O2 Delivery O2 Flow Rate FiO2 03/17/25 09:00 98.3 86 20 130/98 (109) 98 98.3 03/17/25 07:30 Room Air* 0 21 Total Intake and Output 03/16/25 03/16/25 03/17/25 15:00 23:00 07:00 Intake Total 625 ml 125 ml 240 ml Output Total 1700 ml Balance 625 ml 125 ml -1460 ml medications Current Medications Medications Dose Ordered Sig/Cindy Route Start Time Stop Time Status Last Admin Dose Admin Nitroglycerin 0.4 mg Q5MINP PRN SL 03/16/25 06:45 Morphine Sulfate 2 mg Q30M PRN IV 03/16/25 06:45 Citalopram Hydrobromide 20 mg DAILY PO 03/16/25 10:00 03/17/25 10:01 20 MG Ondansetron HCl 4 mg Q6HPRN PRN IV 03/16/25 06:45 Pantoprazole Sodium 40 mg BID IV 03/16/25 10:00 03/17/25 10:01 40 MG Morphine Sulfate 2 mg Q6HPRN PRN IV 03/16/25 07:00 Lorazepam 1 mg Q5MINP PRN IV 03/16/25 13:15 Sucralfate 1 gm TID@0600,1130,2200 PO 03/16/25 22:00 03/17/25 06:28 1 GM Chlordiazepoxide HCl 10 mg Q6HPRN PRN PO 03/16/25 16:15 Alprazolam 0.125 mg BID PO 03/17/25 22:00 objective Anxious female comfortable alert awake oriented x3 HEENT neck supple no JVD pupils equal round react to light heart regular rate and rhythm S1-S2 lungs fair air movement without rales wheezes. abdomen soft nontender positive bowel sounds. extremities no edema positive pulses laboratory and microbiology Laboratory Tests 03/17/25 05:30 Test 03/17/25 05:30 Range/Units Serum Glucose 76 74-106 mg/dL Assessment/Plan I will add a low-dose Xanax overnight as a trial for her anxiety. Meantime we will check orthostatic blood pressure and pulse to rule out POTS syndrome. Otherwise regular diet and encouraged activity. Further clinical management per clinical course. Discussed with the patient and her mother along with the nurse at bedside regarding care plan. Problems(with codes): (1) Anxiety (2) Thrombocytopenia (3) Transaminitis (4) Palpitations Plan discussed with: Patient, Other JAGUAR JENKINS MD Mar 17, 2025 12:02
[2025-03-17 13:58] LABS: Albumin 4.1 g/dL (3.2-4.8)
[2025-03-17 13:59] LABS: Bilirubin, Direct 0.5 mg/dL (<0.3); Bilirubin, Total 1.4 mg/dL (0.2-1.0)
--- NOTE | 2025-03-17 14:02 | DVHPN2 ---
Progress Note Date Seen: Mar 17, 2025 Resident Creating Document: GEMA GALVAN RESIDENT Medical Necessity Reason Pt with a Central, PICC or Fol: No Subjective Review of Systems Patient seen and examined at the bedside. Patient reported improvement in her symptoms, no new complaints. We will closely monitor liver. Patient reports: No new complaints Objective vital signs Vital Sign Date Time Temp Pulse Resp B/P (MAP) Pulse Ox O2 Delivery O2 Flow Rate FiO2 03/17/25 09:00 98.3 86 20 130/98 (109) 98 98.3 03/17/25 07:30 Room Air* 0 21 Total Intake and Output 03/16/25 03/16/25 03/17/25 15:00 23:00 07:00 Intake Total 625 ml 125 ml 240 ml Output Total 1700 ml Balance 625 ml 125 ml -1460 ml medications Current Medications Medications Dose Ordered Sig/Cindy Route Start Time Stop Time Status Last Admin Dose Admin Nitroglycerin 0.4 mg Q5MINP PRN SL 03/16/25 06:45 Morphine Sulfate 2 mg Q30M PRN IV 03/16/25 06:45 Citalopram Hydrobromide 20 mg DAILY PO 03/16/25 10:00 03/17/25 10:01 20 MG Ondansetron HCl 4 mg Q6HPRN PRN IV 03/16/25 06:45 Pantoprazole Sodium 40 mg BID IV 03/16/25 10:00 03/17/25 10:01 40 MG Morphine Sulfate 2 mg Q6HPRN PRN IV 03/16/25 07:00 Lorazepam 1 mg Q5MINP PRN IV 03/16/25 13:15 Sucralfate 1 gm TID@0600,1130,2200 PO 03/16/25 22:00 03/17/25 13:15 1 GM Chlordiazepoxide HCl 10 mg Q6HPRN PRN PO 03/16/25 16:15 Alprazolam 0.125 mg BID PO 03/17/25 22:00 Propranolol HCl 5 mg TID PO 03/17/25 14:00 Examination Pt is lying on bed General Appearance: Alert, Oriented X3, Cooperative, Not in acute distress HEENT: Atraumatic, Mucous membranes moist/pink Respiratory: Clear to auscultation, Normal air movement, No added sounds Cardiovascular: Regular rate, Normal S1, Normal S2, No murmurs, sternal tenderness Abdominal: Active bowel sounds, Soft, no distention, epigastrium, RUQ abdominal tenderness Extremities: No edema, Normal pulses, No tenderness/swelling Skin: No Significant rash, except past surgical scars Neuro: Normal speech, sensorimotor deficits none Psych/Mental Status: anxious Nurse was there as sharperone during examination laboratory and microbiology Laboratory Tests 03/17/25 05:30 Test 03/17/25 05:30 Range/Units Serum Glucose 76 74-106 mg/dL Microbiology Date/Time Source Procedure Growth Status 03/16/25 03:25 Blood Blood Culture - Preliminary NO GROWTH AFTER 24 HOURS OF INCUBATION. Resulted Labs and/or images reviewed: Labs reviewed by me, Image(s) reviewed by me Problem List/Assessment/Plan Problem List/Assessment/Plan # Intractable Nausea & Vomiting # questionable alcohol withdrawal # Upper GI bleed # Transaminitis # Hepatomegaly and hepatic steatosis # hx of Crohn's disease # Elevated lipase r/o pancreatitis # Pancytopenia # Dyslipidemia # ?Thyroid disease # Chest pain with associated acute hypoxic respiratory failure # Lactic acidosis Plan/Recommendation - Librium p.o. q.6 p.r.n. - ordered ammonia not elevated, - JOSE M panel, pending - Protonix 40 iv bid - Zofran prn - IV fluids NS - Hepatitis panel negative - CT abdominal pelvis with the contrast showed Hepatomegaly and hepatic steatosis. - Monitor lab - please avoid NSAIDs, alcohol, spicy, highly acidic and caustic diets. - start full liquid diet - follow up on outpatient - Rest of the management as per primary team Thank you so much for the opportunity to consult on your patient. GI team will follow the patient Case an action plan discussed with Dr. Dominga Masters. Complex care planning needed total 49 minutes of detailed discussion. The patient and caregiver team agreed to the plan. Plan discussed with: Patient My Orders My Orders Orders - GEMA GALVAN Procedure Category Date Status Time Chlordiazepoxide Hcl PHA 03/16/25 In Process Capsule (Librium Ca 16:15 GEMA GALVAN RESIDENT Mar 17, 2025 14:02
[2025-03-17] MEDS: PROPRANOLOL HCL 20 MG TAB PO SCH (16:23)
[2025-03-17] MEDS: ALPRAZolam 0.25 MG TAB PO SCH (21:30)
[2025-03-18 01:00] VITALS: BP 135/86; PULSE 102; RESP 19; TEMP 98.5; O2SAT 95
[2025-03-18 06:18] LABS: Basophils # (auto) 0 10 ^3/uL (0-0.2); Basophils % (auto) 0.9 % (0.0-2.0); Eosinophils # (auto) 0.2 10 ^3/uL (0-0.8); Eosinophils % (auto) 4.6 % (0.0-7.0); Hemoglobin 11.7 g/dL (12.2-16.2); Lymphocytes # (auto) 1.4 10 ^3/uL (0.4-5.4); Lymphocytes % (auto) 34.3 % (10.0-50.0); Mean Corpuscular Hemoglobin 32.2 pg (28.0-32.0); Mean Corpuscular Hgb Conc. 33.5 g/dL (32.0-36.0); Mean Corpuscular Volume 96.2 fL (80.0-100.0); Monocytes # (auto) 0.6 10 ^3/uL (0-1.3); Monocytes % (auto) 14.6 % (0.0-12.0); Neutrophils # (auto) 1.9 10 ^3/uL (1.6-8.6); Neutrophils % (auto) 45.6 % (37.0-80.0); Nucleated Red Blood Cells % 0.1 %; Platelet Count (auto) 92 10^3/uL (140-450); Red Blood Cells 3.64 10^6/uL (4.0-5.20); Red Cell Distribution Width 16.5 % (11.8-14.3); White Blood Cell 4.1 10^3/uL (4.4-10.8)
[2025-03-18 06:31] LABS: Alanine Aminotransferase 76 U/L (7-40); Albumin 4.4 g/dL (3.2-4.8); Alkaline Phosphatase 90 U/L (46-116); Anion Gap 11 (5-15); Aspartate Aminotransferase 99 U/L (13-40); BUN/Creatinine Ratio 12.1 (10.0-20.0); Bilirubin, Total 1.1 mg/dL (0.2-1.0); Blood Urea Nitrogen 7 mg/dL (9-23); Calcium 10.2 mg/dL (8.7-10.4); Carbon Dioxide 25 mmol/L (20-31); Chloride 100 mmol/L (98-107); Glucose 110 mg/dL (74-106); Potassium 3.6 mmol/L (3.5-5.1); Sodium 136 mmol/L (136-145); Total Protein 7.6 g/dL (5.7-8.2)
[2025-03-18 07:45] VITALS: RESP 18
[2025-03-18 08:00] VITALS: PULSE 100
[2025-03-18 08:37] VITALS: BP 131/101; PULSE 89; RESP 19; TEMP 98.4; O2SAT 99
--- NOTE | 2025-03-18 09:06 | DVHPNRES ---
Progress Note Date Seen: Mar 18, 2025 Resident Creating Document: GEMA GALVAN RESIDENT Medical Necessity Reason Pt with a Central, PICC or Fol: No Subjective Review of Systems Patient seen and examined at the bedside. Patient reported improvement in her symptoms, reported new complaints. Patient reported improvement in her shaking. Patient reports: Feels better Objective vital signs Vital Sign Date Time Temp Pulse Resp B/P (MAP) Pulse Ox O2 Delivery O2 Flow Rate FiO2 03/18/25 08:37 98.4 89 19 131/101 (111) 99 98.4 03/18/25 07:45 Room Air* 0 21 Total Intake and Output 03/17/25 03/17/25 03/18/25 15:00 23:00 07:00 Intake Total 560 ml 950 ml Output Total 700 ml Balance -140 ml 950 ml medications Current Medications Medications Dose Ordered Sig/Cindy Route Start Time Stop Time Status Last Admin Dose Admin Nitroglycerin 0.4 mg Q5MINP PRN SL 03/16/25 06:45 Morphine Sulfate 2 mg Q30M PRN IV 03/16/25 06:45 Citalopram Hydrobromide 20 mg DAILY PO 03/16/25 10:00 03/17/25 10:01 20 MG Ondansetron HCl 4 mg Q6HPRN PRN IV 03/16/25 06:45 Pantoprazole Sodium 40 mg BID IV 03/16/25 10:00 03/17/25 21:30 40 MG Morphine Sulfate 2 mg Q6HPRN PRN IV 03/16/25 07:00 Lorazepam 1 mg Q5MINP PRN IV 03/16/25 13:15 Sucralfate 1 gm TID@0600,1130,2200 PO 03/16/25 22:00 03/18/25 06:00 1 GM Chlordiazepoxide HCl 10 mg Q6HPRN PRN PO 03/16/25 16:15 Alprazolam 0.125 mg BID PO 03/17/25 22:00 03/17/25 21:30 0.125 MG Propranolol HCl 5 mg TID PO 03/17/25 14:00 03/18/25 06:00 5 MG Examination Pt is lying on bed, still shaking present but improved General Appearance: Alert, Oriented X3, Cooperative, Not in acute distress HEENT: Atraumatic, Mucous membranes moist/pink Respiratory: Clear to auscultation, Normal air movement, No added sounds Cardiovascular: Regular rate, Normal S1, Normal S2, No murmurs, sternal tenderness Abdominal: Active bowel sounds, Soft, no distention, epigastrium, RUQ abdominal tenderness Extremities: No edema, Normal pulses, No tenderness/swelling Skin: No Significant rash, except past surgical scars Neuro: Normal speech, sensorimotor deficits none Psych/Mental Status: anxious Nurse was there as sharperone during examination laboratory and microbiology Laboratory Tests 03/18/25 05:26 Test 03/18/25 05:26 Range/Units Serum Glucose 110 H 74-106 mg/dL Microbiology Date/Time Source Procedure Growth Status 03/16/25 03:25 Blood Blood Culture - Preliminary NO GROWTH AFTER 48 HOURS OF INCUBATION. Resulted Labs and/or images reviewed: Labs reviewed by me, Image(s) reviewed by me Problem List/Assessment/Plan Problem List/Assessment/Plan # Intractable Nausea & Vomiting-Improving # questionable alcohol withdrawal # Upper GI bleed- improved # Transaminitis- improving # Hepatomegaly and hepatic steatosis # hx of Crohn's disease # Elevated lipase r/o pancreatitis # Pancytopenia # Dyslipidemia # ?Thyroid disease # Chest pain with associated acute hypoxic respiratory failure # Lactic acidosis Plan/Recommendation - Librium p.o. q.6 p.r.n. - ordered ammonia not elevated, - JOSE M panel, pending - Protonix 40 iv bid - Zofran prn - IV fluids NS - Hepatitis panel negative - CT abdominal pelvis with the contrast showed Hepatomegaly and hepatic steatosis. - Monitor lab - please avoid NSAIDs, alcohol, spicy, highly acidic and caustic diets. - start full liquid diet - follow up on outpatient - Rest of the management as per primary team - patient is clear for discharge from GI point of view. Thank you so much for the opportunity to consult on your patient. GI team will follow the patient Case an action plan discussed with Dr. Dominga Masters. Complex care planning needed total 49 minutes of detailed discussion. The patient and caregiver team agreed to the plan. Plan discussed with: Patient MANDYGEMA RESIDENT Mar 18, 2025 09:06
[2025-03-18 13:00] VITALS: BP 122/92; PULSE 87; RESP 19; TEMP 98.1; O2SAT 100
[2025-03-18 13:07] LABS: Immunoglobulin A 472 mg/dL (87-352)
[2025-03-18] MEDS ORDERED: PANT40T PO (13:27)
[2025-03-18] MEDS ORDERED: PROP1TAB51 PO (13:27)
--- NOTE | 2025-03-18 13:34 | DVHDS2 ---
Discharge Summary Date of Admission Mar 16, 2025 at 06:34 Date of Discharge: Mar 18, 2025 Labs/Diagnostic Data: Laboratory Results Test 03/18/25 05:26 03/17/25 13:02 03/17/25 05:30 03/16/25 20:02 White Blood Count 4.1 10^3/uL (4.4-10.8) Red Blood Count 3.64 10^6/uL (4.0-5.20) Hemoglobin 11.7 g/dL (12.2-16.2) Hematocrit 35.0 % (36.0-46.0) Mean Corpuscular Volume 96.2 fL (80.0-100.0) Mean Corpuscular Hemoglobin 32.2 pg (28.0-32.0) Mean Corpuscular Hemoglobin Concent 33.5 g/dL (32.0-36.0) Red Cell Distribution Width 16.5 % (11.8-14.3) Platelet Count 92 10^3/uL (140-450) Mean Platelet Volume 8.9 fL (6.9-10.8) Neutrophils (%) (Auto) 45.6 % (37.0-80.0) Lymphocytes (%) (Auto) 34.3 % (10.0-50.0) Monocytes (%) (Auto) 14.6 % (0.0-12.0) Eosinophils (%) (Auto) 4.6 % (0.0-7.0) Basophils (%) (Auto) 0.9 % (0.0-2.0) Neutrophils # (Auto) 1.9 10 ^3/uL (1.6-8.6) Lymphocytes # (Auto) 1.4 10 ^3/uL (0.4-5.4) Monocytes # (Auto) 0.6 10 ^3/uL (0-1.3) Eosinophils # (Auto) 0.2 10 ^3/uL (0-0.8) Basophils # (Auto) 0 10 ^3/uL (0-0.2) Nucleated Red Blood Cells 0.1 % Sodium Level 136 mmol/L (136-145) Potassium Level 3.6 mmol/L (3.5-5.1) Chloride Level 100 mmol/L (98-107) Carbon Dioxide Level 25 mmol/L (20-31) Anion Gap 11 (5-15) Blood Urea Nitrogen 7 mg/dL (9-23) Creatinine 0.58 mg/dL (0.550-1.02) Glomerular Filtration Rate Calc 121 mL/min (>90) BUN/Creatinine Ratio 12.1 (10.0-20.0) Serum Glucose 110 mg/dL (74-106) Calcium Level 10.2 mg/dL (8.7-10.4) Total Bilirubin 1.1 mg/dL (0.2-1.0) Aspartate Amino Transferase (AST) 99 U/L (13-40) Alanine Aminotransferase (ALT) 76 U/L (7-40) Alkaline Phosphatase 90 U/L (46-116) Total Protein 7.6 g/dL (5.7-8.2) Albumin 4.4 g/dL (3.2-4.8) Direct Bilirubin 0.5 mg/dL (<0.3) Lipase 100 U/L (12-53) Vitamin B12 Level 553 pg/mL (211-911) Thyroid Stimulating Hormone (TSH) 6.05 uIU/mL (0.55-4.78) Free Thyroxine (T4) Calculated 1.49 ng/dL (0.89-1.76) Immunoglobulin A 472 mg/dL (87-352) Anti-Nuclear Antibody Screen Negative (Negative) Lactic Acid Level 1.1 mmol/L (0.4-2.0) Test 03/16/25 15:26 03/16/25 13:46 03/16/25 06:41 03/16/25 05:52 D-Dimer, Quantitative 0.55 mg/L FEU (0.0-0.49) Ammonia < 10 umol/L (11-32) Prothrombin Time 11.5 sec (9.3-11.8) Prothrombin Time INR 1.09 (0.9-1.15) Activated Partial Thromboplast Time 26.5 SEC (24.5-34.5) POC Glucose 110 mg/dl (70-106) Blood Gas Specimen Type Arterial Blood Gas Sample Site Right radial Blood Gas Patient Temperature 37.0 Arterial Blood Date Drawn [id number] Arterial Blood pH 7.499 (7.350-7.450) Arterial Blood Partial Pressure CO2 23.9 mmHg (32.0-45.0) Arterial Blood Partial Pressure O2 62.0 mmHg (83.0-108.0) Arterial Blood HCO3 18.2 mmol/L (21.0-28.0) Arterial Blood Oxygen Saturation 89.6 % (94.0-98.0) Arterial Blood Base Excess -3.7 mmol/L (-2.0-3.0) Arterial Blood Oxyhemoglobin 88.7 % (94.0-98.0) Arterial Blood Carboxyhemoglobin 0.3 % (0.5-1.5) Arterial Blood Methemoglobin 0.7 % (0.0-1.5) Luke Test Yes Blood Gas Total Hemoglobin 10.70 g/dL (12.0-16.0) Blood Gas Liter Flow 0.00 Blood Gas Modality Room air FiO2 % 21.0 Troponin I High Sensitivity < 3 ng/L (</=34) Triglycerides Level 121 mg/dL (< 150) Cholesterol Level 278 mg/dL (< 200) LDL Cholesterol 162 mg/dL (< 100) HDL Cholesterol 93 mg/dL (40-59) Plasma/Serum Blood Alcohol < 3.0 mg/dL (<10) Test 03/16/25 04:07 03/16/25 01:49 03/16/25 01:46 Urine Color Colorless (Yellow) Urine Clarity Clear (Clear) Urine pH 7.0 (5.0-9.0) Urine Specific [place] 1.037 (1.001-1.035) Urine Protein Negative (Negative) Urine Ketones 2+ (Negative) Urine Blood Negative /uL (Negative) Urine Nitrite Negative (Negative) Urine Bilirubin Negative (Negative) Urine Urobilinogen Normal mg/dL (Negative) Urine Leukocyte Esterase Negative /uL (Negative) Urine RBC <1 /hpf (0 - 4) Urine Microscopic WBC < 1 /HPF (0-5) Urine Squamous Epithelial Cells Few /hpf (<5) Urine Bacteria None seen /hpf (None Seen) Urine Glucose Normal mg/dL (Normal) Urine Opiates Screen Neg (NEGATIVE) Urine Fentanyl Screen Neg (NEGATIVE) Urine Barbiturates Screen Neg (NEGATIVE) Urine Phencyclidine Screen Neg (NEGATIVE) Urine Amphetamines Screen Neg (NEGATIVE) Urine Benzodiazepines Screen Neg (NEGATIVE) Urine Cocaine Screen Neg (NEGATIVE) Urine Cannabinoids Screen Neg (NEGATIVE) Hemoglobin A1c 5.0 % A1C (<5.7) Beta HCG, Quantitative 0.9 mIU/mL (1.5-4.2) Hepatitis A IgM Antibody Negative Hepatitis B Surface Antigen Negative (Negative) Hepatitis B Core IgM Antibody Negative (Negative) Hepatitis C Antibody Negative (Negative) Beta-Hydroxybutyric Acid > 4.500 mmol/L (< 0.4) Other Laboratory Tests 03/18/25 05:26 Brief Hx & Hospital Course: Mrs. Jade Sosa is a 34-year-old female with a history of Crohn's disease, anxiety disorder, asthma, hyperlipidemia, gallstones who presents with a chief complaint of chest pain, palpitations, nausea, vomiting, and tremors. Patient states that she is having quite a bit of N/V with blood in her sputum once on Sunday, denies any further blood in her sputum, reports it is causing her to feel tremulous. Patient is visibly shaking during assessment. Patient mentions she is trying to get gallbladder removal surgery, is seen by general surgeon Dr. Fuentes Perez. Patient mentions that her at home independent call center agent, Dr. Brigitte Morrison, has not cleared her for surgery due to her WBC count. Patient reports midsternal chest pressure non radiating. Patient denies dyspnea, headaches, dizziness, melena, hematochezia, diarrhea, constipation, hematemesis, fevers. Patient admitted for further evaluation. She is admitted and evaluated for her symptoms. Patient is advised to stop the statin due to elevated transaminitis for another two weeks. Her liver function tests have normalized. CT of the abdomen and pelvis and ultrasound are unremarkable. Patient's platelets have slightly improved. In terms of her tachycardia patient's orthostatic blood pressure and pulse rate was done and she came back positive suggestive of postural orthostatic tachycardia syndrome. Therefore she was started on low-dose propranolol which seemed to improve her heart rate and shakes. Otherwise she was tolerating her diet. She is feeling better back to baseline normal status. Therefore it is felt she could be safely discharged home. I have talked with the patient as well as her mother who is at bedside along with the nurse at bedside regarding her hospital diagnosis, treatment she received, CT and ultrasound results, her blood pressure and heart rate changes, discharge medications and discharge instructions. They have verbalized understanding of these and agree with the care plan as outlined. Operations or Procedures INDICATION: RUQ pain TECHNIQUE: Multiple real-time sonographic images of the abdomen were obtained. COMPARISON: None FINDINGS: The liver is heterogenous in echogenicity. The liver measures 15cm. No intrahepatic biliary ductal dilatation is noted. The gallbladder wall measures 0.12 cm and is unremarkable. No gallstones or sludge is seen. The common duct measures 0.4 cm and is unremarkable. No pericholecystic fluid is noted. The right kidney measures 10cm. No hydronephrosis. The pancreas is not well visualized due to obscuration from bowel gas. The visualized portions of the IVC and aorta are grossly unremarkable. IMPRESSION: Hepatic steatosis : Two-dimensional and M-mode echocardiogram with Doppler and color Doppler. Blood Pressure: 133/89 mmHg INDICATION Chest Pain Tachycardia RISK FACTORS Height: 65, Weight: 143 DIMENSIONS LVDd 4.2 (3.8-5.7cm) LA (2D) 3.5 (1.9-4.0cm) Aortic Root 3.0 (2.0- 3.7cm) LVDs 2.7 (2.5-4.0cm) LA (MM) (1.9-4.0cm) Aortic Cusp Exc 1.8 (1.5- 2.0cm) EF (%) 65.0 (55-70%) Rt. Atrium 3.2 (1.9-4.0cm) Asc. Aorta cm IVSd 0.7 (0.7-1.1cm) RV (D) (1.8-2.4cm) PWd 0.8 (0.7-1.1cm) Mitral Valve Mitral Mitral Stenosis E wave 0.78m/s MV Mean GR. mmHg A wave 0.95m/s MV Peak GR. mmHg E/A ratio 0.8 2D MVA cm2 DECEL Time 136ms PRESS 1/2 Time 58ms IVRT ms Dop MVA 3.78cm2 Aortic Valve Aortic Valve Aortic Stenosis V1 1.26m/s AO Mean GR. 3mmHg V2 1.21m/s AO Peak GR. 6mmHg LVOT Diameter 1.9 (1.8-2.4cm) Doppler LUCRECIA 2.95cm2 Pulmonic Valve V2 1.00m/s Conclusion lvef 70% by visual estimate normal rv function normal atria no severe valve abnormalities noted SIGNED BY: GRACIELA CASTANEDA MD SIGNED DATE/TIME: 03/16/25 1137 Condition at Discharge: Stable Final Diagnosis/Problems List POTS syndrome, Transaminitis due to statin Discharge Disposition: Home Discharge Instruct/Medications Diet: Consistent carbohydrate, Cardiac 2g Na,low cholest Activity: No Restrictions, As Tolerated Follow Up/Referral: Primary care physician in two weeks and to have repeat liver function tests done for statin induced transaminitis. Hold your cholesterol medication till you see your primary care physician. Take the heart rate medication as prescribed. Medications: As prescribed and home medications per discharge med list except your cholesterol pill. New Medications: Pantoprazole Sodium Sesquihydr (Pantoprazole Sodium) 40 Mg Tab 40 MG PO DAILY, #30 TAB Propranolol HCl (Propranolol Hydrochloride) 10 Mg Tab 5 MG PO TID, #90 TAB take 1/2 tab (5mg) three times a day for fast heart rate Discharge Statement: "Patient was advised to return to the ER or call 911 if any headaches, dizziness, shortness of breath, chest pain, abdominal pain, bleeding, fevers, or worsening of medical condition. Patient was counseled about treatment plan, medications, possible side effects, patientverbalized understanding. All questions were answered to the best of my ability. This discharge took greater then 30 minutes in planning, reviewing documentation, counseling the patient, and discussing with other team members." ASSESSMENT ASSESSMENT Assessment POTS syndrome, Transaminitis due to statin JAGUAR JENKINS MD Mar 18, 2025 13:34
[2025-03-18 14:33] VITALS: BP 128/83; PULSE 85; TEMP 36.7
[2025-03-20 06:07] LABS: Endomysial IgA Antibody Negative (Negative)
[2025-03-20 12:07] LABS: t-Transglutaminase (tTG) IgA <2 U/mL (0-3)
== END 2025-03-18 15:37 | disposition home or self-care (01) | DRG 48 ==
LOC: ER 01:36 → OVERFLOW 06:34 → TELE-WESTW 18:12
PROVIDERS: ADMIT Nurse Practitioner Family; ATTEND Nurse Practitioner Family
DX: G90.A Postural orthostatic tachycardia syndrome [POTS] (principal); D69.6 Thrombocytopenia, unspecified; R16.0 Hepatomegaly, not elsewhere classified; K92.2 Gastrointestinal hemorrhage, unspecified; K76.0 Fatty (change of) liver, not elsewhere classified; E86.0 Dehydration; D64.9 Anemia, unspecified; E78.5 Hyperlipidemia, unspecified; F41.9 Anxiety disorder, unspecified; F10.239 Alcohol dependence with withdrawal, unspecified; E07.9 Disorder of thyroid, unspecified; J45.909 Unspecified asthma, uncomplicated; B34.9 Viral infection, unspecified; K50.90 Crohn's disease, unspecified, without complications; Z82.49 Family history of ischemic heart disease and other diseases of the circulatory system; Z87.891 Personal history of nicotine dependence; Z90.721 Acquired absence of ovaries, unilateral; R74.01 Elevation of levels of liver transaminase levels
CPT/HCPCS: 36415; 36600; 71045; 74177; 76705; 80048; 80053; 80061; 80074; 80076; 80307; 80320; 81001; 82010; 82140; 82607; 82784; 82805; 82962; 83036; 83516; 83605; 83690; 84439; 84443; 84484; 84702; 85025; 85379; 85610; 85730; 86038; 86255; 87040; 93005; 93306; 96361; 96365; 96366; 96368; 96375; 97116; 97163; 97530; G0378; J2405; J2470; J3490